=== PATIENT | female | born 1945 | race Caucasian/White ===

== ENCOUNTER 2016-10-27 06:29 | Day surgery (SDC) | payer MEDICARE, OTHER ==
[2016-10-25 11:41] LABS: HEMOGLOBIN 13.3 g/dL (12.0-16.0)
[2016-10-25 11:42] LABS: HEMATOCRIT 41.6 % (36.0-48.0)
[2016-10-25 11:53] LABS: BUN (BLOOD UREA NITROGEN) 7 MG/DL (6-23); CALCIUM, SERUM 8.9 MG/DL (8.5-10.4); CHLORIDE, SERUM 106 MMOL/L (96-112); CO2 (CARBON DIOXIDE) 29 MMOL/L (24-34); CREATININE 0.58 MG/DL (0.55-1.02); GFR AFRICAN AMERICAN 108 ML/MIN (>=60); GFR NON AFRICAN AMERICAN 93 ML/MIN (>=60); GLUCOSE, SERUM 77 MG/DL (60-99); POTASSIUM, SERUM 4.5 MMOL/L (3.5-5.3); SODIUM, SERUM 143 MMOL/L (135-148)
--- NOTE | ~2016-10-27 | OP ---
Record Of Operation [facility] [address] [place]. [address] NAME: HAILEY OLIVER : 47 STATUS : [facility]#: [id number] AGE: 71 ADM/REG DATE : 10/27/16 MR#: [id number] REPORT SERV DATE: 10/27/16 DICTATED BY: SHANE VERDUZCO DATE: 10/27/16 REPORT STATUS : Draft TRANSCRIBED BY: MODL DATE: 10/27/16 DATE OF PROCEDURE: PREOPERATIVE DIAGNOSIS: Exostosis, anterior maxilla. POSTOPERATIVE DIAGNOSIS: Exostosis, anterior maxilla. OPERATION: Excision. DESCRIPTION OF PROCEDURE: Following induction of general endotracheal anesthesia, face and mouth were prepped and draped in usual manner. The anterior maxilla was infiltrated with 0.5% Marcaine with 1:200,000 epinephrine solution, total of 2 mL. Next, an incision was made along the anterior maxilla at the junction of the vestibular mucosa and alveolar mucosa and a supraperiosteal dissection was carried out. At this point, there was noted to be multiple calcified granules consistent with migratory hydroxylapatite with the same configuration and appearance as an exostosis. This was removed with a rongeur and forceps and bone file. The wound was copiously irrigated with normal saline, and the mucoperiosteum reapproximated with 3-0 chromic gut suture. The pharynx was suctioned clear. The patient was allowed to awaken on the inflated nasoendotracheal tube having tolerated the procedure well. BLOOD LOSS: Less than 50 mL. IV FLUIDS: 400 mL of lactated Ringer's. The patient received 1 g of Ancef and 6 mg of Decadron intraoperatively. WT/MODL Shane Verduzco D.D.S. / [id number] CC: Cleopatra Costello Thomas E
[~2016-10-27 06:29] MED LIST: ASAB PO; CLARIT10 PO; CYANO1000T PO; FLONASE NAS; LAN125 PO; MIRAPEX0.75 MG PO; MIRAPEX125 PO; NITROSPRAY SL; NORCO1 TA2 PO; REQUIP5 PO; SYN075 PO; ULTRAM50 PO; VITAMIN B-121000 MC1 SL; ZOCOR20 PO; ZYRTEC ALLGY10 MG PO; [UNRECOGNIZED DRUG - OTHER] OR
== END 2016-10-27 11:44 | disposition home or self-care (01) ==
LOC: SDC 06:29
PROVIDERS: Oral & Maxillofacial Surgery
PROC: 0NBR0ZZ Excision of Maxilla, Open Approach (ICD-10-PCS; principal; 2016-10-27 07:45)
DX: D16.5 Benign neoplasm of lower jaw bone (principal); I10 Essential (primary) hypertension; E03.9 Hypothyroidism, unspecified; D64.9 Anemia, unspecified; M19.90 Unspecified osteoarthritis, unspecified site; E78.00 Pure hypercholesterolemia, unspecified; G43.909 Migraine, unspecified, not intractable, without status migrainosus; Z87.01 Personal history of pneumonia (recurrent); Z88.2 Allergy status to sulfonamides
CPT/HCPCS: 80048; 85014; 85018; 88304; 88311; 93005; A9270-GY; J0690; J2250; J2405; J2710; J3010